=== PATIENT | male | born 2000 | race Caucasian/White ===

== ENCOUNTER 2025-03-07 21:47 | Emergency (ER) | payer OTHER ==
[~2025-03-07] VITALS: Ht 175.3 cm; Wt 129.0 kg
[2025-03-07 21:53] VITALS: O2SAT 99
[2025-03-07 22:12] VITALS: BP 158/92; PULSE 95; RESP 18; TEMP 36.9; O2SAT 100
[2025-03-08] MEDS ORDERED: ALBU18HF2 IH (00:34)
[2025-03-08] MEDS ORDERED: DIVA500T3 MT (00:34)
== END 2025-03-08 01:59 | disposition home or self-care (01) ==
LOC: ER 21:47
DX: R07.89 Other chest pain (principal); J45.909 Unspecified asthma, uncomplicated; F31.9 Bipolar disorder, unspecified; Z76.0 Encounter for issue of repeat prescription; Z79.899 Other long term (current) drug therapy; Z88.6 Allergy status to analgesic agent
CPT/HCPCS: 71045; 93005; 99283